=== PATIENT | male | born 1940 | race African-American/Black ===

== ENCOUNTER 2020-04-16 06:15 | Inpatient (IN) | payer OTHER ==
[~2020-04-16] VITALS: Ht 180.3 cm; Wt 62.9 kg
[2020-04-16] MEDS ORDERED: SODIUM CHLORIDE 0.9% 1000ML BAG (SEPSIS BOLUS) IV ONE (06:45)
[2020-04-16 06:57] LABS: BG BASE EXCESS -4.9 mmol/L (-2.0-2.0); BG CARBOXYHEMOGLOBIN 0.3 % (0.5-1.5); BG DEOXYHEMOGLOBIN 3.9 % (0.0-5.0); BG FRACTION INSPIRED OXYGEN 21; BG HCO3 ACT 19.8 mmol/L (22.0-26.0); BG METHEMOGLOBIN 0.2 % (0.0-1.5); BG OXYGEN SATURATION 96.1 % (92.0-98.5); BG OXYHEMOGLOBIN 95.6 % (94.0-97.0); BG PCO2 35.2 mmHg (35.0-45.0); BG PH 7.368 (7.350-7.450); BG SAMPLE SITE RIGHT BRACHIAL; BG TOTAL HEMOGLOBIN 10.4 g/dL (12.0-18.0); BG VENT MODE ROOM AIR
[2020-04-16 07:23] LABS: BASOPHILS % 0.4 % (0.0-2.0); EOSINOPHILS % 0.8 % (0.0-5.0); HEMOGLOBIN. 10.3 g/dL (14.0-18.0); MEAN CORPUSCULAR HEMOGLOBIN 26.9 pg (28.0-32.0); MEAN CORPUSCULAR VOLUME 83.1 fL (80.0-94.0); MEAN PLATELET VOLUME 7.6 fl (7.4-10.4); MONOCYTES % 6.8 % (2.0-8.0); PLATELET 291 x1000/uL (130-400); RED BLOOD CELL COUNT 3.85 mill/uL (4.7-6.1); RED CELL DISTRIBUTION WIDTH 15.5 % (11.6-14.6)
[2020-04-16 07:27] LABS: CHLORIDE 105 mEq/L (98-107)
[2020-04-16 07:48] LABS: PROTHROMBIN TIME 10.7 sec (9.6-11.0)
[2020-04-16] MEDS ORDERED: SODIUM CHLORIDE 0.9% 500 ML IV ONE (09:30)
[2020-04-16] MEDS ORDERED: MIDODRINE HCL 2.5MG TABLET PO SCH (10:00)
[2020-04-16] MEDS: SODIUM CHLORIDE 0.9% 1,000 ML IV SCH (15:00)
[2020-04-16] MEDS ORDERED: ACETAMINOPHEN 325MG TABLET PO PRN (15:00)
[2020-04-16] MEDS ORDERED: ONDANSETRON HCL 4MG/2ML INJ IV PRN (15:00)
[2020-04-16 16:15] VITALS: BP 103/53
[2020-04-16 17:31] VITALS: BP 92/51
[2020-04-16 18:00] VITALS: BP 106/50
[2020-04-16] MEDS ORDERED: LISI10TA5 PO (18:03)
[2020-04-16] MEDS ORDERED: ATOR40TA70 MT (18:03)
[2020-04-16] MEDS ORDERED: CARVEDILOL (18:04)
[2020-04-16 18:51] VITALS: BP_SYST 106; BP_SYST 82; BP_DIAS 50; BP_DIAS 54
[2020-04-16] MEDS: ASPIRIN 81MG TABLET PO SCH (19:04)
[2020-04-16 20:00] VITALS: BP_SYST 111; BP_SYST 132; BP_SYST 168; BP_DIAS 118; BP_DIAS 55; BP_DIAS 82
[2020-04-16] MEDS ORDERED: INFLUENZA VACCINE 05/PF 0.5 ML VIAL IM ONE (21:00)
[2020-04-16] MEDS ORDERED: TRAZODONE HCL 50MG TABLET PO PRN (21:00)
[2020-04-16 21:33] LABS: HDL CHOLESTEROL 55 mg/dL (40-59); LDL CHOLESTEROL 67 mg/dL (5-100)
[2020-04-16 22:00] VITALS: BP 109/57
[2020-04-16] MEDS: HEPARIN 5000 UNITS/ML VIAL SUBCUT SCH (23:38)
[2020-04-17] VITALS (11 sets, daily range): BP systolic 104–139; BP diastolic 54–80
[2020-04-17 00:55] LABS: CLARITY URINE CLEAR (CLEAR); COLOR URINE YELLOW (YELLOW); KETONES URINE NEGATIVE (NEGATIVE); LEUKOCYTE ESTERASE URINE NEGATIVE (NEGATIVE); NITRITE URINE NEGATIVE (NEGATIVE); OCCULT BLOOD URINE NEGATIVE (NEGATIVE); PROTEIN URINE NEGATIVE (NEGATIVE); UROBILINOGEN URINE 0.2 E.U./dL (0.2-1.0)
[2020-04-17] MEDS: SODIUM CHLORIDE 0.9% 1,000 ML IV SCH ×2 (06:11→16:26)
[2020-04-17 07:32] LABS: BASOPHILS % 0.5 % (0.0-2.0); EOSINOPHILS % 1.2 % (0.0-5.0); HEMATOCRIT. 26.8 % (42.0-52.0); LYMPHOCYTES % 10.3 % (20.0-50.0); MEAN CORPUSCULAR HEMOGLOBIN 28.1 pg (28.0-32.0); MEAN CORPUSCULAR VOLUME 83.3 fL (80.0-94.0); MEAN PLATELET VOLUME 7.7 fl (7.4-10.4); MONOCYTES % 7.8 % (2.0-8.0); NEUTROPHILS % 80.2 % (40.0-76.0); PLATELET 204 x1000/uL (130-400); RED BLOOD CELL COUNT 3.22 mill/uL (4.7-6.1); RED CELL DISTRIBUTION WIDTH 15.1 % (11.6-14.6)
[2020-04-17 07:43] LABS: CHLORIDE 111 mEq/L (98-107)
[2020-04-17] MEDS: HEPARIN 5000 UNITS/ML VIAL SUBCUT SCH (09:02)
[2020-04-17] MEDS: ASPIRIN 81MG TABLET PO SCH (09:02)
[2020-04-17] MEDS ORDERED: FINA5TAB11 MT (14:01)
[2020-04-17] MEDS ORDERED: FINASTERIDE 5MG TABLET PO SCH (14:30)
[2020-04-17] MEDS ORDERED: CARVEDILOL 3.125 MG TABLET PO NR (16:30)
== END 2020-04-17 18:30 | disposition home or self-care (01) | DRG 73 ==
LOC: ER 06:15 → 5EST 13:57 → EDBEDREQ 14:05 → ENRESERV 15:32
PROVIDERS: ADMIT Family Medicine Adult Medicine; ATTEND Family Medicine Adult Medicine
DX: G90.8 Other disorders of autonomic nervous system (principal); E43 Unspecified severe protein-calorie malnutrition; J18.9 Pneumonia, unspecified organism; N17.0 Acute kidney failure with tubular necrosis; Z68.1 Body mass index [BMI] 19.9 or less, adult; I95.2 Hypotension due to drugs; D64.9 Anemia, unspecified; E78.5 Hyperlipidemia, unspecified; E78.00 Pure hypercholesterolemia, unspecified; E86.0 Dehydration; R33.9 Retention of urine, unspecified; I11.9 Hypertensive heart disease without heart failure; I25.10 Atherosclerotic heart disease of native coronary artery without angina pectoris; I45.10 Unspecified right bundle-branch block; Z20.828 Contact with and (suspected) exposure to other viral communicable diseases; Z79.82 Long term (current) use of aspirin; Z79.899 Other long term (current) drug therapy; Z87.891 Personal history of nicotine dependence; Z95.1 Presence of aortocoronary bypass graft; I25.2 Old myocardial infarction; N40.0 Benign prostatic hyperplasia without lower urinary tract symptoms; T50.905A Adverse effect of unspecified drugs, medicaments and biological substances, initial encounter
CPT/HCPCS: 36415; 36600; 71045; 76770; 80053; 80061; 81003; 82375; 82805; 83605; 83735; 83880; 84145; 84443; 84484; 85025; 87426; 87804; 90686; 93005; 93306; 93880; 97162; 99285; J1644; J7030; J7040; A4315